=== PATIENT | female | born 1970 | race Two or more races ===

== ENCOUNTER 2018-08-28 21:19 | Emergency (ER) | payer OTHER ==
[~2018-08-28] VITALS: Ht 157.5 cm; Wt 54.4 kg
[2018-08-28 21:30] VITALS: BP 158/105
[2018-08-28 22:19] LABS: Albumin 3.8 g/dL (3.4-5.0); Anion Gap 10 (5-15); BUN/Creatinine Ratio 29.9; Blood Urea Nitrogen 23 mg/dL (7-18); Calcium 8.7 mg/dL (8.5-10.1); Carbon Dioxide 23 mmol/L (21-32); Chloride 106 mmol/L (98-107); GFR African American > 60 mL/min; GFR Non-African American > 60 mL/min; Glucose 103 mg/dL (74-106); Potassium 3.5 mmol/L (3.5-5.1); Sodium 139 mmol/L (136-145)
[2018-08-28 22:25] LABS: Basophils # (auto) 0.1 uL; Basophils % (auto) 0.9 % (0.0-2.0); Eosinophils # (auto) 0.2 uL; Eosinophils % (auto) 3.4 % (0.0-7.0); Hematocrit 37.4 % (36.0-46.0); Hemoglobin 12.7 g/dL (12.2-16.2); Lymphocytes # (auto) 1.9 uL; Lymphocytes % (auto) 26.9 % (10.0-50.0); Mean Corpuscular Hemoglobin 28.5 pg (28.0-32.0); Mean Corpuscular Hgb Conc. 33.8 g/dL (32.0-36.0); Mean Corpuscular Volume 84.3 fL (80.0-100.0); Monocytes # (auto) 0.5 uL; Monocytes % (auto) 6.8 % (0.0-12.0); Neutrophils # (auto) 4.3 uL; Nucleated Red Blood Cells % 0.1 %; Platelet Count (auto) 384 10^3/uL (140-450); Red Blood Cells 4.44 10^6/uL (4.0-5.20); Red Cell Distribution Width 15.3 % (11.8-14.3); White Blood Cell 6.9 10^3/uL (4.4-10.8)
[2018-08-28 22:28] LABS: Alanine Aminotransferase 23 U/L (13-56); Alkaline Phosphatase 116 U/L (45-117); Aspartate Aminotransferase 19 U/L (15-37); Bilirubin, Total 0.2 mg/dL (0.2-1.0); Total Protein 8.5 g/dL (6.4-8.2)
== END 2018-08-29 03:10 | disposition left against medical advice (07) ==
LOC: ER 21:19
DX: R07.89 Other chest pain (principal); Z53.21 Procedure and treatment not carried out due to patient leaving prior to being seen by health care provider
CPT/HCPCS: 36415; 71045; 80053; 84484; 85025; 93005